=== PATIENT | female | born 1945 | race Caucasian/White ===

== ENCOUNTER → 2017-07-21 | Outpatient (CLI) | payer MEDICARE ==
[~2017-07-21] MED LIST: ALB18R INH; ALBU2.5V36 IH; AMO500 PO; AMOX-559 PO; ASPI81TA94 PO; AZIT-1 PO; CHOL500045 PO; FLUT16SP19 NS; FOLI-51 PO; GUAI120L3 PO; LEVO50TA80 PO; LEVO75TA73 PO; LISI-351 PO; LISI30TA46 PO; METH4TAB66 PO; MONT10TA PO; OMEP40CA48 PO; OXYGEN INH; PRE20 PO; [UNRECOGNIZED DRUG - REMARK]
--- NOTE | 2017-07-21 09:57 | RADIOLOGY IMAGING REPORT ---
FACILITY: [facility] PATIENT NAME: Kaitlyn Raza : 1945 MR: [id number] V: [id number] EXAM DATE: ORDERING PHYSICIAN: GINA BROWNLEE TECHNOLOGIST: Location: [facility] - [place] Patient: Kaitlyn Raza : 1945 Visit/Account:[id number] Date of Sevice: 07/21/2017 Exam type: CHEST PA AND LAT History: Productive cough x2 weeks, nonsmoker, asthma Comparison: January 09, 2017 Findings: The lungs are free of acute effusions, infiltrates or edema. There is mild chronic peribronchial thi ckening bilaterally Cardiac silhouette is normal in size. The trachea is in midline.. There is chron ic elevation right hemidiaphragm IMPRESSION: 1. Mild chronic peribronchial thickening bilaterally although no evidence of acute pulmonary consoli dation Report Dictated By: Heather Turcios MD at 07/21/2017 9:51 AM Report E-Signed By: Heather Turcios MD at 07/21/2017 9:53 AM WSN:[email or web address]
== END ==
LOC: RAD 09:06
PROVIDERS: ATTEND Nurse Practitioner Family
DX: R91.8 Other nonspecific abnormal finding of lung field (principal)
CPT/HCPCS: 71046

== ENCOUNTER → 2018-04-01 | Outpatient (CLI) | payer MEDICARE ==
--- NOTE | 2018-04-01 11:11 | RADIOLOGY IMAGING REPORT ---
FACILITY: [facility] - [place] PATIENT NAME: Kaitlyn Raza : 1945 MR: [id number] V: [id number] EXAM DATE: ORDERING PHYSICIAN: GINA BROWNLEE TECHNOLOGIST: Location: [facility] Patient: Kaitlyn Raza : 1945 Visit/Account:[id number] Date of Sevice: 04/01/2018 PELVIC HISTORY: Postmenopausal bleeding with occasional spotting TECHNIQUE: Transvaginal and transabdominal ultrasound pelvis. COMPARISON: None. FINDINGS: Uterus: ; 6.2 cm length x 3.6 cm AP x 4.4 cm transverse. Myometrium: Unremarkable. Endometrium: The endometrium is diffusely thickened with a large heterogeneous filling defect within the endometrium measuring 2.3 x 2.9 x 3.8 cm. There is also small amount of free fluid within the en dometrium Cervix: Small nabothian cysts. Ovaries: Right - not visualized Left - not visualized Adnexa: Grossly unremarkable. Free pelvic fluid: None. IMPRESSION: The endometrium is diffusely thickened with a large heterogeneous filling defect within the endometri um measuring 2.3 x 2.9 x 3.8 cm with a small amount of adjacent fluid. This could represent a very l arge endometrial mass or combination of mass and blood clot given the clinical history. 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
== END ==
LOC: US 02:49
PROVIDERS: ATTEND Nurse Practitioner Family
DX: N88.8 Other specified noninflammatory disorders of cervix uteri (principal); N84.1 Polyp of cervix uteri
CPT/HCPCS: 76830; 76856

== ENCOUNTER → 2018-04-13 | Outpatient (CLI) | payer MEDICARE ==
[~2018-04-13] MED LIST changes: +FLUT1AER INH; +LOSA-57 PO; +MELO-205 PO; +OMEP-137 PO; +PRAV20TA65 PO; +[UNRECOGNIZED DRUG - CODE] PO
== END ==
LOC: LAB 16:34
PROVIDERS: ATTEND Obstetrics & Gynecology
DX: C54.1 Malignant neoplasm of endometrium (principal)
CPT/HCPCS: 88305

== ENCOUNTER → 2018-04-27 | Outpatient (CLI) | payer MEDICARE ==
--- NOTE | 2018-04-27 09:18 | EKG ---
FACILITY: [facility] PATIENT NAME: SHARON THOMAS : [id number] MR: [id number] V: [id number] EXAM DATE: ORDERING PHYSICIAN: JYOTSNA BARAKAT TECHNOLOGIST: Test Reason : Blood Pressure : / mmHG Vent. Rate : 075 BPM Atrial Rate : 075 BPM P-R Int : 150 ms QRS Dur : 092 ms QT Int : 374 ms P-R-T Axes : 044 075 030 degrees QTc Int : 417 ms Sinus rhythm Possible left atrial enlargement Decreased R wave progression anteriorly No previous ECGs available Confirmed by OMER HUTCHINSON ([id number]) on 04/27/2018 3:54:43 PM Referred By: Confirmed By:OMER HUTCHINSON
== END ==
LOC: LAB 08:13
PROVIDERS: ATTEND Obstetrics & Gynecology Gynecologic Oncology
DX: Z01.818 Encounter for other preprocedural examination (principal); C54.1 Malignant neoplasm of endometrium
CPT/HCPCS: 36415; 82040; 82247; 82248; 82310; 82374; 82435; 82565; 82947; 84075; 84132; 84155; 84295; 84450; 84460; 84520; 85027; 93005

== ENCOUNTER 2018-06-11 08:51 | Outpatient (RCR) | payer MEDICARE ==
--- NOTE | 2018-06-02 01:55 | TOBIN CONSULT ---
EVENT DATE: June 01, 2018 CHIEF COMPLAINT Patient is here to discuss pros/cons of adjuvant radiation therapy for recently diagnosed uterine cancer with deep myometrial invasion and lymphovascular invasion. HISTORY This is a pleasant 73-year-old lady who is referred to me by Dr. Jesse Garcia and Dr. Low to discuss possible adjuvant therapy for recently diagnosed endometrial carcinoma with adverse features. According to the patient, she presented to [facility] initially with adverse features. According to the patient, she presented to [facility] initially with postmenopausal spotting. She denied any pelvic pain. She was advised to undergo ultrasound immediately, which was obtained on 04/01/18. Uterus measured 6.2 x 3.6 x 4.4 cm. The endometrium was thickened with a filling defect measuring 2.3 x 2.9 x 3.8 cm. Further evaluation was indicated. Patient saw Dr. Low and underwent biopsy with diagnosis of endometrial adenocarcinoma, grade 1. That was received on April 16. Patient was then referred to Dr. Jesse Garcia for PRIMARY TEACHING ASSISTANT oncology expertise. Patient was taken to the OR, where she underwent da Kaitlin robotic total laparoscopic vaginal hysterectomy and bilateral salpingo-oophorectomy. Pelvic lymphadenectomy was also performed for staging. That procedure was performed on 05/05/18. Patient did well postoperatively with no complications and was discharged on day 2. The final pathology revealed an endometrioid adenocarcinoma, FIGO grade 1. Tumor demonstrated greater than 50% myometrial invasion. Depth of invasion was estimated to be 0.6 cm of a 1.1 cm thick myometrium. Lymphovascular invasion is identified. Five pelvic lymph nodes on the right side were examined and were benign. Union lymph node on the left side was benign. Union lymph node on the right pelvis was benign. Pelvic fluid was negative for malignancy. The summary by the pathologist listed myometrial invasion, at least 55%. Cervical stromal involvement was negative. Seven lymph nodes total were all negative; pathologic T1b N0. Patient has been advised to discuss adjuvant radiotherapy options with myself, and she was referred back to Dr. Low in the last two weeks and is presently referred over to our office for initial consultation, accompanied by her two daughters. Patient denies any weight loss. She is not experiencing any swelling in the lower extremities. No family history of malignancy. She has had no difficulty with healing of her trochanter sites. MEDICATIONS 1. Pravastatin. 2. Montelukast. 3. Prilosec. 4. Meloxicam. 5. Breo Ellipta 100-25. 6. Losartan/hydrochlorothiazide 100-12.5. 7. Calcium with vitamin D. 8. Lisinopril/hydrochlorothiazide. 9. Levothyroxine 75 mcg a day. 10. Aspirin 81 mg a day. 11. Oxygen 2L at night. ALLERGIES 1. CIPROFLOXACIN. 2. TAPE. PAST MEDICAL HISTORY 1. Uterine carcinoma with history listed above. 2. Hypertension. 3. 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 4. History of GERD. 5. 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 6. Hypothyroidism. 7. Type 2 diabetes. PAST SURGICAL HISTORY Robotic hysterectomy and oophorectomy and lymph node dissection, 05/05/18. SOCIAL HISTORY G3, P3. Nonsmoker. . FAMILY HISTORY Negative for carcinoma. COMPREHENSIVE REVIEW OF SYSTEMS Entirely negative with the exception of the arthritis in the hands. PHYSICAL EXAMINATION GENERAL: A pleasant 73-year-old female. Performance status 90%, weight 187, BP 136/85, pulse 102, respirations 16, O2 saturation 93% on room air. LYMPHATIC: No lymphadenopathy. LUNGS: Clear bilaterally. HEART: Heart sounds regular. No audible murmur. ABDOMEN: No gross organomegaly, mass, or tenderness. Five trocar sites were inspected, which are all well healed at this time. No abdominal tenderness or mass. EXTREMITIES: No edema or cyanosis. NEUROLOGICAL: Intact. IMPRESSION This is a pleasant 73-year-old female with newly diagnosed adenocarcinoma of the endometrium. She has undergone appropriate surgical staging by Dr. Garcia. She appears to have two adverse features related to her malignancy which warrant consideration of adjuvant radiation therapy. Those features are greater than 50% myometrial invasion and lymphovascular space invasion. For patients with intermediate risk factors, the recurrence risk can be 17% to 25%. Radiation therapy has been effectively proven to lower the risk of local regional tumor recurrence. I went through options in terms of radiation therapy with IMRT versus vaginal brachytherapy. She appears to be a better candidate for the IMRT radiotherapy, and she would like to proceed with that option. She will see Dr. Low in two weeks. If she is cleared from a surgical standpoint, she will undergo a diagnostic CT scan of the chest, abdomen and pelvis the following day, on the . She will start radiation therapy after the first of the year with tentative plan to deliver 50.4 Gy external beam radiotherapy in standard fractionation to the upper vaginal vault and remaining pelvic lymph nodes. I will utilize an IMRT treatment technique to lower the risk of any adverse effects. I would expect minor increase in bowel or bladder frequency; however, otherwise the treatment should be well tolerated. Signed consent was obtained for therapy today, and all questions answered to her satisfaction during 90-minute consultation. FRANCISCO
[2018-06-11 09:10] LABS: PLATELET COUNT, AUTOMATED 241 K/uL (150-450)
[2018-06-11] MEDS ORDERED: IOPAMIDOL 76% 50 ML INFUS BTL 100 ML ONE (09:43)
--- NOTE | 2018-06-11 15:42 | RADIOLOGY IMAGING REPORT ---
FACILITY: [facility] PATIENT NAME: Yumiko Raza : 1945 MR: [id number] V: [id number] EXAM DATE: ORDERING PHYSICIAN: ESME HUDSON TECHNOLOGIST: Location: [facility] - [place] Patient: Yumiko Raza : 1945 Visit/Account:[id number] Date of Sevice: 06/11/2018 EXAMINATION: CT chest with IV contrast CT abdomen with IV contrast CT pelvis with IV contrast HISTORY: Endometrial cancer. COMPARISON: CT abdomen and pelvis from 09/06/2009 and pelvic ultrasound from 04/01/2018. TECHNIQUE: Axial images were taken through the chest, abdomen and pelvis during injection of nonion ic iodinated intravenous contrast. Sagittal and coronal reformatted images are also submitted. CONTRAST: 75 mL of IV Isovue-370. One of the following dose optimization techniques was utilized in the performance of this exam: Autom ated exposure control; adjustment of the mA and/or kV according to the patient's size; or use of an i terative reconstruction technique. Specific details can be referenced in the facility's radiology C T exam operational policy. FINDINGS: CT CHEST: Lungs/pleura: 12 x 9 mm noncalcified left lower lobe nodule (image 65 series 4) is larger than [address] from 08/2009, although the prior CT slices were thicker. The nodule margins are mildly irregular and it is also slightly denser than on prior CT. Mediastinum/jennifer: Negative. Heart/pericardium: Negative. Vessels: Moderate atherosclerotic calcifications, including of the coronary arteries. Musculoskeletal/body wall: Negative. Lymph nodes: Negative. Lower neck: Negative. CT ABDOMEN AND PELVIS: Liver/biliary: Negative. Pancreas: Negative. Spleen: Negative. Adrenal glands: Negative. Kidneys: A few subcentimeter simple left renal cysts. Pelvic structures: Hysterectomy since recent ultrasound. There may be a small normal left ovary. The right ovary is not visualized. Bowel: Moderate diverticulosis of the colon, worst in the sigmoid colon. No adjacent inflammation. There is normal caliber retrocecal appendix. Bowel loops are normal in caliber. Peritoneum/retroperitoneum/mesenteries: Negative. Vessels: Moderate atherosclerotic calcifications. Vascular structures are patent. Musculoskeletal/body wall: Mild degenerative changes of the lumbar spine. No focal lytic or scleroti c bony lesions. Lymph nodes: Negative. IMPRESSION: 1. 12 x 9 mm noncalcified left lower lobe nodule is increased in size and density compared to CT fro m 08/2009, although the slice thickness is slightly different. Appearance is not typical for a pulmon modesta metastasis, although that is in the differential. Primary bronchogenic carcinoma and chronic inf lammation are also in the differential. PET/CT is recommended for further evaluation. 2. No other evidence of metastatic disease. 3. Hysterectomy. 4. Moderate diverticulosis of the colon without inflammation. Report Dictated By: Ana Lilia Richardson MD at 06/11/2018 2:21 PM Report E-Signed By: Ana Lilia Richardson MD at 06/11/2018 3:36 PM DESTINYN:TAMMY
--- NOTE | 2018-06-30 09:22 | NUR ---
Pt completed initial HADS form. Pt scored D-0, A-1. No concerns.
== END 2018-08-29 ==
LOC: SPU 08:51
PROVIDERS: ATTEND Radiology Radiation Oncology
DX: C54.1 Malignant neoplasm of endometrium (principal); Z90.710 Acquired absence of both cervix and uterus; I10 Essential (primary) hypertension; E03.9 Hypothyroidism, unspecified; E11.9 Type 2 diabetes mellitus without complications; R91.1 Solitary pulmonary nodule; K57.30 Diverticulosis of large intestine without perforation or abscess without bleeding
CPT/HCPCS: 36415; 71260; 74177; 82040; 82247; 82310; 82374; 82435; 82565; 82947; 84075; 84132; 84155; 84295; 84450; 84460; 84520; 85025; 86304; 99202; Q9967

== ENCOUNTER → 2018-06-30 | Outpatient (CLI) | payer MEDICARE ==
[2018-06-30 10:12] LABS: PLATELET COUNT, AUTOMATED 264 K/uL (150-450)
[2018-06-30 10:48] LABS: LDL CHOLESTEROL 92 mg/dl
== END ==
LOC: LAB 09:28
PROVIDERS: ATTEND Nurse Practitioner Family
DX: E11.9 Type 2 diabetes mellitus without complications (principal); K57.32 Diverticulitis of large intestine without perforation or abscess without bleeding; R60.9 Edema, unspecified; I10 Essential (primary) hypertension; J45.20 Mild intermittent asthma, uncomplicated; K21.9 Gastro-esophageal reflux disease without esophagitis; E06.3 Autoimmune thyroiditis; R09.02 Hypoxemia; E78.2 Mixed hyperlipidemia; J45.40 Moderate persistent asthma, uncomplicated; N95.0 Postmenopausal bleeding; E78.00 Pure hypercholesterolemia, unspecified; M06.9 Rheumatoid arthritis, unspecified; E03.9 Hypothyroidism, unspecified; R79.9 Abnormal finding of blood chemistry, unspecified; E55.9 Vitamin D deficiency, unspecified
CPT/HCPCS: 36415; 82040; 82247; 82306; 82310; 82374; 82435; 82465; 82565; 82607; 82947; 83036; 83718; 84075; 84132; 84155; 84295; 84443; 84450; 84460; 84478; 84520; 85025

== ENCOUNTER 2018-08-03 08:49 | Outpatient (RCR) | payer MEDICARE | END 2018-09-09 | LOC: RAON 08:49 | PROVIDERS: ATTEND Radiology Radiation Oncology | DX: Z51.0 Encounter for antineoplastic radiation therapy (principal); C54.1 Malignant neoplasm of endometrium; E11.9 Type 2 diabetes mellitus without complications; E78.2 Mixed hyperlipidemia; E06.3 Autoimmune thyroiditis; E55.9 Vitamin D deficiency, unspecified | CPT/HCPCS: 36415; 71260; 74177; 77280; 77290; 77300; 77301; 77336; 77338; 77386; 82306; 82607; 83036; 84443; 85025; 86304; Q9967; 82040; 82247; 82310; 82374; 82435; 82465; 82565; 82947; 83718; 84075; 84132; 84155; 84295; 84450; 84460; 84478; 84520 ==

== ENCOUNTER → 2018-10-21 | Outpatient (CLI) | payer MEDICARE | LOC: LAB 09:22 | PROVIDERS: ATTEND Urology | DX: N39.0 Urinary tract infection, site not specified (principal) | CPT/HCPCS: 81001; 87088 ==